=== PATIENT | male | born 1955 | race Caucasian/White ===

== ENCOUNTER 2024-06-20 19:25 | Emergency (ER) | payer MEDICARE, MEDICAID | END 2024-06-20 20:50 | disposition left against medical advice (07) | LOC: JP.ED 19:25 | DX: F10.129 Alcohol abuse with intoxication, unspecified (principal); I10 Essential (primary) hypertension; E78.00 Pure hypercholesterolemia, unspecified; J44.9 Chronic obstructive pulmonary disease, unspecified; K21.9 Gastro-esophageal reflux disease without esophagitis; F17.210 Nicotine dependence, cigarettes, uncomplicated; Z90.49 Acquired absence of other specified parts of digestive tract; Z79.899 Other long term (current) drug therapy; Z79.51 Long term (current) use of inhaled steroids; Z88.5 Allergy status to narcotic agent | CPT/HCPCS: 99285 ==

== ENCOUNTER 2024-06-20 21:11 | Emergency (ER) | payer MEDICARE, MEDICAID ==
[2024-06-20] MEDS ORDERED: Ketorolac 30 MG/ML SDV IM ONE (21:34)
== END 2024-06-20 22:00 | disposition left against medical advice (07) ==
LOC: JP.ED 21:11
DX: Z53.21 Procedure and treatment not carried out due to patient leaving prior to being seen by health care provider (principal)

== ENCOUNTER 2024-09-22 20:48 | Emergency (ER) | payer MEDICARE, MEDICAID ==
[2024-09-22 21:42] LABS: BASOPHILS ABSOLUTE AUTO 0.05 K/uL (0.00-0.10); BASOPHILS PERCENT AUTO 0.4 % (0.1-1.3); EOSINOPHILS ABSOLUTE AUTO 0.07 K/uL (0.00-0.40); EOSINOPHILS PERCENT AUTO 0.6 % (0.0-5.4); IMMATURE GRAN ABSOLUTE AUTO 0.04 K/uL (0.00-0.23); IMMATURE GRAN PERCENT AUTO 0.3 % (0.0-0.7); LYMPHOCYTES ABSOLUTE AUTO 1.25 K/uL (0.8-3.3); LYMPHOCYTES PERCENT AUTO 10.4 % (11.4-47.7); MEAN CORPUSCULAR HEMOGLOBIN 31.1 pg (31.6-35.5); MEAN CORPUSCULAR HGB CONC 34.1 g/dL (31.6-35.5); MEAN CORPUSCULAR VOLUME 91.3 fL (81.4-99.0); MONOCYTES ABSOLUTE AUTO 0.61 K/uL (0.20-0.90); MONOCYTES PERCENT AUTO 5.1 % (3.3-12.6); NEUTROPHILS PERCENT AUTO 83.2 % (40.0-78.1); PLATELET COUNT,PLT 264 K/uL (130-375); RED BLOOD CELL COUNT 4.82 M/uL (4.14-5.76)
[2024-09-22 22:03] LABS: ALANINE AMINOTRANSFERASE,ALT 18 U/L (12-78); ALBUMIN 3.8 g/dL (3.4-5.0); ALKALINE PHOSPHATASE 163 U/L (46-116); ASPARTATE AMNIOTRANSFERASE,AST 13 U/L (15-37); BILIRUBIN TOTAL 0.6 mg/dL (0.2-1.0); BLOOD UREA NITROGEN,BUN 14 mg/dL (7-18); C-REACTIVE PROTEIN 0.69 mg/dL (<0.50); CALCIUM 9.6 mg/dL (8.5-10.1); CARBON DIOXIDE,CO2 27 mmol/L (21-32); CHLORIDE,CL 100 mmol/L (100-108); CREATININE 1.1 mg/dL (0.8-1.3); EST CRCL DRUG DOSING (CG) 54.57 mL/min; ESTIMATED GFR 74 mL/min (>60); GLUCOSE RANDOM 111 mg/dL (74-106); POTASSIUM,K 3.9 mmol/L (3.6-5.2); PROTEIN TOTAL,TP 7.5 g/dL (6.4-8.2); SODIUM,NA 138 mmol/L (140-148)
[2024-09-22 22:06] LABS: ANION GAP 14.9 mmol/L (5.0-14.0)
[2024-09-22 22:09] LABS: LACTIC ACID 1.5 mmol/L (0.4-2.0)
[2024-09-22] MEDS ORDERED: Naloxone 0.4 MG/ML SDV IVPUSH PRN (22:15)
[2024-09-22] MEDS: HYDROmorphone 0.5 MG/0.5 ML Syringe IVPUSH ONE (22:31)
[2024-09-22] MEDS: Ondansetron 4 MG/2 ML SDV IVPUSH ONE (22:31)
[2024-09-22] MEDS: Sodium Chloride 0.9% 80 ML IV SCH (22:42)
[2024-09-22] MEDS: Iopamidol 612 MG/ML 100 ML Bottle IV ONE (22:42)
[2024-09-22] MEDS: Sodium Chloride 0.9% 1,000 ML IV SCH (22:49)
[2024-09-22] MEDS: Lidocaine 2% Jelly 10 ML Urojet MUCMEM ONE (23:23)
[2024-09-22 23:29] LABS: APPEARANCE,URINE CLEAR (CLEAR); BILIRUBIN,URINE NEGATIVE (NEGATIVE); COLOR,URINE YELLOW (YELLOW); GLUCOSE,URINE NEGATIVE (NEGATIVE); KETONES,URINE NEGATIVE (NEGATIVE); LEUKOCYTE ESTERASE,URINE NEGATIVE (NEGATIVE); NITRITE,URINE NEGATIVE (NEGATIVE); OCCULT BLOOD,URINE NEGATIVE (NEGATIVE); PROTEIN,URINE NEGATIVE (NEGATIVE); UROBILINOGEN,URINE 0.2 EU/dL (0.2-1.0)
[2024-09-22 23:39] LABS: AMORPHOUS SEDIMENT,URINE NOT SEEN; BACTERIA,URINE FEW; EPITHELIAL CELLS,URINE RARE; MUCUS,URINE NOT SEEN; RBC,URINE 0-5 (0-5); WBC,URINE 0-5 (0-5)
[2024-09-23] MEDS ORDERED: Naloxone 0.4 MG/ML SDV IVPUSH PRN (00:55)
[2024-09-23] MEDS: HYDROmorphone 0.5 MG/0.5 ML Syringe IVPUSH ONE (01:05)
== END 2024-09-23 01:29 | disposition home or self-care (01) ==
LOC: JP.ED 20:48
DX: R33.9 Retention of urine, unspecified (principal); F17.210 Nicotine dependence, cigarettes, uncomplicated; J44.9 Chronic obstructive pulmonary disease, unspecified; K21.9 Gastro-esophageal reflux disease without esophagitis; E78.00 Pure hypercholesterolemia, unspecified; I10 Essential (primary) hypertension; Z79.899 Other long term (current) drug therapy; Z88.5 Allergy status to narcotic agent; Z90.49 Acquired absence of other specified parts of digestive tract
CPT/HCPCS: 36415; 51702; 74177; 80053; 81001; 83605; 83690; 85025; 86140; 96361; 96374; 96375; 96376; 99284; J1171; J2405; J3490; J7030; Q9967

== ENCOUNTER 2024-10-11 19:39 | Emergency (ER) | payer MEDICARE, MEDICAID ==
[2024-10-11 19:57] LABS: APPEARANCE,URINE CLEAR (CLEAR); BILIRUBIN,URINE NEGATIVE (NEGATIVE); COLOR,URINE YELLOW (YELLOW); GLUCOSE,URINE NEGATIVE (NEGATIVE); KETONES,URINE NEGATIVE (NEGATIVE); LEUKOCYTE ESTERASE,URINE NEGATIVE (NEGATIVE); NITRITE,URINE NEGATIVE (NEGATIVE); OCCULT BLOOD,URINE TRACE-INTACT (NEGATIVE); PROTEIN,URINE NEGATIVE (NEGATIVE); UROBILINOGEN,URINE 0.2 EU/dL (0.2-1.0)
[2024-10-11 20:04] LABS: AMORPHOUS SEDIMENT,URINE NOT SEEN; BACTERIA,URINE RARE; EPITHELIAL CELLS,URINE RARE; MUCUS,URINE NOT SEEN; RBC,URINE 0-5 (0-5); WBC,URINE 0-5 (0-5)
[2024-10-11] MEDS: HYDROmorphone 1 MG/ML Syringe IM ONE (20:27)
== END 2024-10-11 20:41 | disposition home or self-care (01) ==
LOC: JP.ED 19:39
DX: R33.9 Retention of urine, unspecified (principal); M54.50 Low back pain, unspecified; R10.31 Right lower quadrant pain; G89.29 Other chronic pain; I10 Essential (primary) hypertension; E78.00 Pure hypercholesterolemia, unspecified; K21.9 Gastro-esophageal reflux disease without esophagitis; F17.210 Nicotine dependence, cigarettes, uncomplicated; Z90.49 Acquired absence of other specified parts of digestive tract; Z79.899 Other long term (current) drug therapy; Z88.6 Allergy status to analgesic agent
CPT/HCPCS: 51702; 81001; 96372; 99284; J1171